=== PATIENT | female | born 1935 | race Caucasian/White ===

== ENCOUNTER 2019-12-15 12:45 | Inpatient (IN) | payer OTHER, SELFPAY ==
[~2019-12-15] VITALS: Ht 162.6 cm; Wt 51.7 kg
--- NOTE | 2019-12-15 12:52 | NUR ---
PT BIB ALS TO ER BED 10
--- NOTE | 2019-12-15 13:00 | NUR ---
4 days fever , denies sob , pain on hip and knees 01/07 .sce , cbs blf. flat soft abdomen. pmhxs copd , hypercholesterolimia , thyroid problem , heart problem. meds .digoxin , synthroid, atrovastatin, diltiazem.
[2019-12-15 13:11] VITALS: BP 125/76
--- NOTE | 2019-12-15 13:14 | NUR ---
dr han at bedside evaluating pt.
--- NOTE | 2019-12-15 13:20 | NUR ---
RT AT BEDSIDE FOR EKG Addendum: 12/15/19 at 1405 by ITZ Amendment fracisco in EDM - 12/15/19 at 1406 by ITZ FOR ABG NOT EKG Addendum: 12/15/19 at 1406 by AILYN FOR ABG NOT EKG
[2019-12-15] MEDS ORDERED: ACETAMINOPHEN EXTRA STRENGTH 500 MG TAB ONE (13:22)
[2019-12-15] MEDS ORDERED: ACETAMINOPHEN 650 MG SUPP RC ONE (13:24)
[2019-12-15] MEDS ORDERED: ACETAMINOPHEN EXTRA STRENGTH 500 MG TAB PO ONE (13:40)
[2019-12-15 13:43] LABS: APPEARANCE,URINE SL CLOUDY (CLEAR); BILIRUBIN,URINE NEGATIVE (NEGATIVE); BLOOD, URINE 2+ (NEGATIVE); COLOR,URINE YELLOW (YELLOW); LEUKOCYTE ESTERASE ,URINE 3+ (NEGATIVE); NITRITE, URINE NEGATIVE (NEGATIVE); UGLUCOSE NEGATIVE (NEGATIVE)
[2019-12-15] MEDS ORDERED: cefTRIAXone 1,000 MG VIAL ONE (13:49)
[2019-12-15 13:55] LABS: RBC,URINE 11-20 (MOD) /HPF (0-5); WBC,URINE 80-100 /HPF (0-5)
--- NOTE | 2019-12-15 14:00 | NUR ---
xray at bedside
--- NOTE | 2019-12-15 14:01 | NUR ---
XRAY AT BESIDE
[2019-12-15 14:11] LABS: ALBUMIN 2.6 g/dL (3.4-5.0); ANION GAP 11.2 (8-16); ASPARTATE AMINOTRANSFERASE 31 U/L (15-37); CARBON DIOXIDE 30.2 mmol/L (21-32); CHLORIDE 104 mmol/L (98-107); CREATININE 0.8 mg/dL (0.6-1.3); GLUCOSE 139 mg/dL (74-106); POTASSIUM 3.4 mmol/L (3.5-5.1); SODIUM SERUM 142 mmol/L (136-145); TOTAL BILIRUBIN 0.8 mg/dL (0.0-1.0); UREA NITROGEN, BLOOD 19 mg/dL (7-18)
[2019-12-15 14:15] LABS: PROTHROMBIN TIME 9.2 secs (10.8-13.4)
--- NOTE | 2019-12-15 14:41 | NUR ---
PT COMFORTABLE IN BED , AWAKE , ALERT, AFIBRILE. NO COMPLAINT AT THIS TIME.
[2019-12-15 15:29] LABS: BASOPHILS % (AUTO) 0.6 % (0.0-2.0); EOSINOPHILS % (AUTO) 0.1 % (0.0-4.0); HEMOGLOBIN 12.5 g/dL (12.0-16.0); LYMPHOCYTES # (AUTO) 0.2 K/uL (2.5-16.5); LYMPHOCYTES % (AUTO) 3.6 % (20.5-51.1); MEAN CORPUSCULAR HEMOGLOBIN 30 pg (27-31); MEAN CORPUSCULAR HGB CONC 33 g/dL (33-37); MONOCYTES # (AUTO) 0.5 K/uL (0.8-1.0); MONOCYTES % (AUTO) 6.8 % (1.7-9.3); NEUTROPHILS % (AUTO) 88.9 % (42.2-75.2); PLATELET COUNT (AUTO) 155 K/uL (140-450); RED BLOOD CELL COUNT(AUTO) 4.17 MIL/uL (4.20-5.40); RED CELL DISTRIBUTION WIDTH 14.6 % (11.6-13.7); WHITE BLOOD COUNT (AUTO) 6.7 K/uL (4.8-10.8)
[2019-12-15] MEDS ORDERED: ACETAMINOPHEN 325 MG TAB PO PRN (15:45)
[2019-12-15] MEDS ORDERED: ONDANSETRON 4 MG/2 ML VIAL IVP PRN (15:45)
[2019-12-15] MEDS ORDERED: HYDROcodone/APAP 7.5/325 MG 1 TAB PO PRN (15:45)
[2019-12-15] MEDS ORDERED: ALBUTEROL HFA MDI 90 MCG/ACTUATION 8 GM INH PRN (16:40)
[2019-12-15 16:43] LABS: FREE T4 (FREE THYROXINE) 1.58 ng/dL (0.76-1.46); PHOSPHORUS 2.9 mg/dL (2.5-4.9); THYROID STIMULATING HORMONE 0.53 uIU/mL (0.34-3.74)
[2019-12-15] MEDS ORDERED: CYCL0.052 OP (17:03)
[2019-12-15] MEDS ORDERED: LEVO0.124 PO (17:03)
[2019-12-15] MEDS ORDERED: DIGO0.122 PO (17:03)
[2019-12-15] MEDS ORDERED: ATOR20TA PO (17:03)
[2019-12-15] MEDS ORDERED: CYAN100T65 PO (17:03)
[2019-12-15] MEDS ORDERED: VITA500L (17:03)
[2019-12-15] MEDS ORDERED: MV-M1CAP8 PO (17:03)
[2019-12-15] MEDS ORDERED: CARER90 PO (17:03)
[2019-12-15] MEDS ORDERED: CALC500C17 PO (17:03)
--- NOTE | 2019-12-15 17:04 | NUR ---
PT TAKEN TO FLOOR BY DENISHA PEPPER
--- NOTE | 2019-12-15 17:10 | NUR ---
Patient will be admitted to care of Dr barber. Admited to [facility]. Will go to room 116 b. Belongings list completed. Report to brenda alonso.
--- NOTE | 2019-12-15 17:10 | NUR ---
RECEIVED PT. FROM ER NURSE, AFSHAN. PT. IS AAOX4 AND IN BED. NO SIGNS OF DISTRESS NOTED. PT. IS ON 3LPM O2 VIA NC WITH O2 STAT OF 99%. OPEN WOUND PRESENT ON THE RIGHT ANKLE, CLEANED AND DRESSING CHANGED. V/S TAKEN, ALL WNL. FALL PRECAUTIONS INITIATED. DROPLET ISOLATION INITIATED. CALL LIGHT WITHIN REACH. WILL CONTINUE TO MONITOR.
[2019-12-15] MEDS ORDERED: AZITHROMYCIN 500 MG in DEXTROSE 5% 250 ML IV SCH (17:50)
--- NOTE | 2019-12-15 18:00 | NUR ---
DR. STOCK BY THE BEDSIDE. PT. ASSESSMENT IS DONE.
[2019-12-15 18:29] VITALS: BP 116/84
--- NOTE | 2019-12-15 19:10 | NUR ---
PT'S FAMILY CALLED WITH REQUEST OF JONES CATHETER, DR. STOCK IS INFORMED AND WILL CONTACT FAMILY.
--- NOTE | 2019-12-15 19:30 | NUR ---
RECEIVED PT AAOX4 , NID - O2 SAT WNL , ON O2 AT 3LPM/NC , IV SITE INTACT AND PATENT . ON TELE MONITOR. SAFETY MEASURES IN PLACE - BED ALARM ON . PLAN OF CARE DISCUSSED AND VERBALIZED UNDERSTANDING - CALL LIGHT WITHIN REACH , W/ WOUND ON RIGHT ANKLE - REMINDS PT THE USE OF CALL LIGHT WHEN SHE NEEDED HELP OF ANYTHING- VERBALIZE UNDERSTANDING . WILL CONT. TO MONITOR.
--- NOTE | 2019-12-15 19:30 | NUR ---
ENDORSED PT. TO ANESTHESIOLOGIST PHYSICIAN NURSE, VIDHYA, FOR CONTINUITY OF CARE.
[2019-12-15 20:00] VITALS: BP 140/80
[2019-12-15] MEDS: DOCUSATE SODIUM 100 MG GELCAP PO SCH (20:53)
--- NOTE | 2019-12-15 22:00 | NUR ---
MADE ROUNDS , NO S/S OF ACUTE DISTRESS NOTED AT THIS TIME . O2 SAT WNL . WILL CONT. TO MONITOR.
[2019-12-15] MEDS ORDERED: AZITHROMYCIN 500 MG INJ VIAL IV ONE (23:13)
[2019-12-16] VITALS: BP 133/70
--- NOTE | 2019-12-16 00:21 | NUR ---
C/O PAIN BURNING SENSATION ON IV SITE - SLOW DOWN THE REGULATION OF ZITHROMAX TIV - ASSESSED IV SITE - INTACT AND PATENT - NO SIGNS OF INFALMMATION OR REDNESS AT THIS TIME .WILL CONT. TO MONITOR . I INFORM THE PT. IF THE PAIN ON THE IV SITE IS BOTHER S A LOT TO HER - I WILL INSERT NEW ONE ON DIFFERENT SITE.- FOR CLOSELY WATCH THE IV SITE.
--- NOTE | 2019-12-16 01:20 | NUR ---
MADE ROUNDS , SHE SAID THE PAIN IN IV SITE IS REDUCED AND BERABLE AT THIS TIME ./ WILL CONT. TO MONITOR. NO INFLAMMATION OR REDNESS NOTED AT THE IV SITE . CALL LIGHT WITHIN IN REACH.
--- NOTE | 2019-12-16 03:30 | NUR ---
RESULT OF BLOOD CULTURE -INFORM DR. TORRES .
[2019-12-16 04:00] VITALS: BP 140/80
--- NOTE | 2019-12-16 06:00 | NUR ---
MADE ROUNDS . RESTING ON BED . NO COMPLAIN MADE AT THIS TIME . IV SITE INTACT AND PATENT - NO REDNESS , NO INFLAMMATION NOTED . WILL CONT. TO MONITOR.
--- NOTE | 2019-12-16 06:40 | NUR ---
PT SAID SHE HAS URGE TO POOP - PUT PT ON BEDPAN - WHEN I PUT A BEDPAN I FEELS SOMETHING HARD LUMPS ON ABD. - NO COMPLAIN OF PAIN AT THIS TIME - WILL INFORM DENISE.
[2019-12-16 06:44] LABS: BASOPHILS % (AUTO) 0.6 % (0.0-2.0); EOSINOPHILS % (AUTO) 0.2 % (0.0-4.0); HEMATOCRIT 36.2 % (36-48); HEMOGLOBIN 12.2 g/dL (12.0-16.0); LYMPHOCYTES # (AUTO) 0.3 K/uL (2.5-16.5); LYMPHOCYTES % (AUTO) 3.9 % (20.5-51.1); MEAN CORPUSCULAR HEMOGLOBIN 30 pg (27-31); MEAN CORPUSCULAR HGB CONC 34 g/dL (33-37); MEAN CORPUSCULAR VOLUME 90.5 fL (80-94); MONOCYTES # (AUTO) 0.6 K/uL (0.8-1.0); MONOCYTES % (AUTO) 8.8 % (1.7-9.3); NEUTROPHILS # (AUTO) 6.4 K/uL (1.8-7.7); NEUTROPHILS % (AUTO) 86.5 % (42.2-75.2); PLATELET COUNT (AUTO) 164 K/uL (140-450); RED CELL DISTRIBUTION WIDTH 14.5 % (11.6-13.7); WHITE BLOOD COUNT (AUTO) 7.3 K/uL (4.8-10.8)
[2019-12-16] MEDS: LEVOTHYROXINE 0.025 MG TAB PO SCH (06:44)
[2019-12-16 06:57] LABS: ANION GAP 10.1 (8-16); CARBON DIOXIDE 28.6 mmol/L (21-32); CHLORIDE 104 mmol/L (98-107); CREATININE 0.7 mg/dL (0.6-1.3); GLUCOSE 110 mg/dL (74-106); POTASSIUM 3.7 mmol/L (3.5-5.1); SODIUM SERUM 139 mmol/L (136-145); UREA NITROGEN, BLOOD 13 mg/dL (7-18)
[2019-12-16 07:03] LABS: MAGNESIUM 1.8 mg/dL (1.8-2.4); PHOSPHORUS 3.2 mg/dL (2.5-4.9)
--- NOTE | 2019-12-16 07:25 | NUR ---
ENDORSED TO AM SHIFT - PT - STABLE - INFORM THE AM SHIFT ABOUT THE ABDL. HARD LUMPS OF THE PT.
--- NOTE | 2019-12-16 07:27 | NUR ---
RECEIVED REPORT FROM MEDIA CONSULTANT OUTSIDE SALES NURSE FOR CONTINUITY OF CARE. PT AWAKE AND RESTING ON BED AT THIS TIME. PT SPEAKS SAMMARINESE AND ABLE TO MAKE NEEDS KNOWN. RESPIRATION EVEN AND UNLABORED ON 2 LPM VIA NC. NO SIGNS OF DISTRESS NOTED. IV ON R WRIST 20G, CLEAN AND INTACT, SL AT THIS TIME. PT IS INCONTINENT AND BEDREST. TELE MONITOR ATTACHED. SAFETY MEASURES IN PLACE. BED IN LOW POSITION, CALL LIGHT WITHIN REACH. BE ALARM ACTIVATED.
[2019-12-16 08:00] VITALS: BP 127/65
[2019-12-16] MEDS: DILTIAZEM 90 MG CAPER PO SCH (08:52)
[2019-12-16] MEDS: VITAMIN E 200 IU CAPLF PO SCH (08:52)
[2019-12-16] MEDS: LACTOBACILLUS RHAMNOSUS GG 1 EACH CAP PO SCH (08:53)
[2019-12-16] MEDS: MULTIVITAMIN 1 TAB PO SCH (08:53)
[2019-12-16] MEDS: CALCIUM CARBONATE 500 MG TAB.CHEW PO SCH (08:53)
[2019-12-16] MEDS: DIGOXIN 0.125 MG TAB PO SCH (08:54)
[2019-12-16] MEDS: DOCUSATE SODIUM 100 MG GELCAP PO SCH ×2 (08:54→20:51)
[2019-12-16] MEDS: ATORVASTATIN 20 MG TAB PO SCH (08:55)
--- NOTE | 2019-12-16 09:20 | NUR ---
CHECKED BP PRIOR TO MED ADMINISTER, BP 120/59 PULSE 138, SPO2 98% WITH 2 LPM VIA NC. ADMINISTERED MEDS PER MD ORDER, MEDS EDUCATION PROVIDED TO PT AND PT VERBALIZED UNDERSTANDING. PT TOLERATED PO MEDS WELL. CHANGED GOWN DUE TO SOILED. PT AWAKE AND SITTING UP ON BED AT THIS TIME. NO SIGNS OF DISTRESS NOTED. TELE MONITOR ATTACHED. SAFETY MEASURES IN PLACE. BED IN LOW POSITION AND CALL LIGHT WITHIN REACH. BED ALARM ACTIVATED. DR RAYO IS AT BEDSIDE AND TALKING TO PATIENT.
--- NOTE | 2019-12-16 09:25 | NUR ---
RECEIVED A CALL FROM PT'S DAUGHTER REX [phone], UPDATED REX WITH PT'S CURRENT CONDITION AND REX WAS AWARE.
--- NOTE | 2019-12-16 09:49 | NUR ---
PATIENT HAS BEEN SCREENED AND CATEGORIZED HIGH NUTRITION RISK. PATIENT WILL BE SEEN WITHIN 1-2 DAYS OF ADMISSION. 12/16/19-12/17/[address]
--- NOTE | 2019-12-16 10:11 | NUR ---
FOOD AND BEVERAGE INTERN NOTE: Basic Screen: Yes High Risk DC Screen [place]: REX SLADE Home Relationship: DAUGHTER Pre-Admission Living Arrangements: Lives Alone Prior ADL Independent Current Home Health Name/Tel: N/A Current DME/02 Name/Tel: N/A Current Hospice Name/Tel: N/A Current Dialysis Name/Tel: N/A Healthcare Decision Maker: Patient Advance Directive No Physician Orders for Life Sustaining Treatment Form No Patient/Family Have Educational Needs No Discipline: Case Mgt/Social Svcs Tentative Discharge Plan/Destination: No Needs Identified Will require assistance post discharge: No Referred to Wireless Telegrapher: No Tentative Discharge Plan Summary: PATIENT IS AN 84-YEAR-OLD FEMALE ADMITTED FOR UTI, FEVER, AND R/O COVID. ROSIE HAS PMHX OF CARDIAC DISORDERS. PATIENT WAS ADMITTED FROM HOME WHERE SHE LIVES ALONE. MARIA VICTORIA CONTACTED PATIENT'S DAUGHTER REX SLADE TO VERIFY DEMOGRAPHICS. PER REX, PATIENT IS INDEPENDENT WITH ALL ADLS AND REQUIRES NO ASSISTANCE WITH SHOPPING, DRIVING, GOING TO PHYSICIAN'S APPOINTMENTS, OR ANY OTHER ADLS. REX STATED THAT PATIENT HAS NO HISTORY OF MENTAL HEALTH OR SUBSTANCE ABUSE. REX REQUESTED PHONE NUMBER TO NURSING STATION REGARDING QUESTIONS OF DISCHARGE PLAN WITH NURSING STAFF. MARIA VICTORIA PROVIDED REX NURSING STATION PHONE NUMBER. TENTATIVE DISCHARGE PLAN IS FOR PATIENT TO RETURN HOME. NO FURTHER NEEDS IDENTIFIED. Signature: CHERY SAVAGE Date: December 16, 2019 Time: 10:10
--- NOTE | 2019-12-16 11:40 | NUR ---
PT AWAKE AND RESTING ON BED. NO SIGNS OF DISTRESS NOTED. TELE MONITOR ATTACHED. SAFETY MEASURES IN PLACE. BED IN LOW POSITION AND CALL LIGHT WITHIN REACH.
[2019-12-16 12:00] VITALS: BP 118/60
--- NOTE | 2019-12-16 13:20 | NUR ---
DC PLANNIN YRS OLD FEMALE PATIENT WAS ADMITTED FROM HOME WITH A DX OF UTI, FEVER, AND R/O COVID . PATIENT HAS A HX OF HEART FAILURE CONSTIPATION, HLD AND MULTIPLE HERNIA REPAIR. CXR SHOWED HYPERINFLATED LUNGS MAY REPRESENT COPD , INFLUENZA A&B NEGATIVE. BLOOD AND URINE CULTURE AND COVID-19 TEST PENDING, ADMINISTERED IV ABX ROCEPHIN AND IV AZITHROMYCIN . PULMONOLOGY CONSULTED. DC PLAN TO GO HOME WHEN STABLE. CM TO FOLLOW. Addendum: 12/18/19 at 1323 by Katerina Rivas CM DC PLANNING: NEGATIVE FOR COVID-19 ,SEEN BY PULMO DR RAYO CONTINUE OXYGEN AND BREATHING TREATMENT AND PT,OT. SEEN BY GIOVANNI LOPEZ CONTINUE IV ABX WITH CEFTRIAXONE, DC PLAN AWAITING FOR URINE CULTURE RESULT TO SEND PT WITH THE RIGHT ABX. CM TO FOLLOW. Addendum: 12/19/19 at 1104 by Renetta Duff CM FAXED PATIENT PACK TO [facility] AND SPOKE WITH SEGUNDO, SHE IS REVIEWING PACKET AND WILL FOLLOW UP. Addendum: 12/19/19 at 1652 by Renetta Duff CM CONTACTED FANTA AT [facility] TO SET UP HOME O2 , FAXED PACKET. PATIENT HAS BEEN ACCEPTED WITH [facility]. Addendum: 12/20/19 at 1211 by Renetta Duff CM SPOKE TO TOREY AT [facility] HOME O2 IS ORDERED AND WILL BE DELIVERED TO PATIENT TODAY. SPOKE TO DR. PERSAUD HE IS WORKING ON DISCHARGE SUMMARY.
[2019-12-16] MEDS: SKINTEGRITY HYDROGEL TP SCH (13:33)
--- NOTE | 2019-12-16 13:38 | NUR ---
PERFORMED WOUND CARE, CLEANSED WITH NS AND PAT DRY. APPLIED HYDROGEL AND SECURED WITH ISLAND DRESSING. PT TOLERATED WELL. UPLOADED PRESSURE WITH PILLOWS. WOUND CARE EDUCATION PROVIDED AND PT VERBALIZED UNDERSTANDING. PT AWAKE AND RESTING ON BED. NO SIGNS OF DISTRESS NOTED. TELE MONITOR ATTACHED. SAFETY MEASURES IN PLACE. BED IN LOW POSITION AND CALL LIGHT WITHIN REACH.
--- NOTE | 2019-12-16 14:10 | NUR ---
ADMINISTERED ANTIBIOTIC PER MD ORDER, MED EDUCATION PROVIDED AND REINFORCEMENT NEEDED DUE TO MENTAL STATUS. PT AWAKE AND RESTING ON BED AT THIS TIME. RESPIRATION EVEN AND UNLABORED ON 2 LPM VIA NC, SPO2 AT 98%. NO SIGNS OF DISTRESS NOTED. TELE MONITOR ATTACHED. SAFETY MEASURES IN PLACE.
--- NOTE | 2019-12-16 15:15 | NUR ---
SUPPORT CLERK PROVIDED HYGIENE CARE TO PT AND PT TOLERATED WELL. NO SIGNS OF DISTRESS NOTED. TELE MONITOR ATTACHED. SAFETY MEASURES IN PLACE.
[2019-12-16 16:00] VITALS: BP 130/59
--- NOTE | 2019-12-16 16:23 | NUR ---
PT IS RESTING ON BED. RESPIRATION EVEN AND UNLABORED. NO SIGNS OF DISTRESS NOTED. TELE MONITOR ATTACHED. SAFETY MEASURES IN PLACE. BED IN LOW POSITION AND CALL LIGHT WITHIN REACH. BED ALARM ACTIVATED.
--- NOTE | 2019-12-16 16:26 | NUR ---
12/16/19 RD INITIAL ASSESSMENT COMPLETED PLEASE REFER TO NUTRITION ASSESSMENT UNDER CARE ACTIVITY FOR ESTIMATED NUTRITIONAL NEEDS. 1. CONTINUE CARDIAC DIET TOLERATED 2. RECOMMEND MADY BID 3. ENCOURAGE PO INTAKE >75% 4. RD TO FOLLOW-UP 3-5 DAYS, MODERATE RISK FRANDY OLSEN, RD
--- NOTE | 2019-12-16 17:37 | NUR ---
PT IS AWAKE AND RESTING ON BED AT THIS TIME. NO SIGNS OF DISTRESS NOTED. TELE MONITOR ATTACHED. SAFETY MEASURES IN PLACE.
--- NOTE | 2019-12-16 19:11 | NUR ---
ENDORSED PT TO FRONT OFFICE DIRECTOR NURSE FOR CONTINUITY OF CARE. PT IS IN STABLE CONDITION. TELE MONITOR ATTACHED. SAFETY MEASURES IN PLACE.
--- NOTE | 2019-12-16 19:12 | NUR ---
RECEIVED REPORT FROM DAY SHIFT NURSE. PT IN BED RESTING. AWAKE AND ALERT. ABLE TO MAKE NEEDS KNOWN. PT IS ON BEDREST. RESPIRATIONS EVEN AND UNLABORED. ON O2 2LPM/NC. SKIN IS DRY. WITH OPEN WOUND ON R ANKLE. DRESSING CLEAN AND INTACT. DENIES ANY PAIN OR DISCOMFORT AT THIS TIME. IV ACCESS ON RFA G20 CLEAN AND INTACT. SALINE LOCKED. PLAN OF CARE DISCUSSED. NO OTHER REQUESTS MADE AT THIS TIME. PT KEPT COMFORTABLE. SAFETY MEASURES IN PLACE. CALL LIGHT WITHIN REACH. WILL CONTINUE TO MONITOR.
[2019-12-16 20:00] VITALS: BP 117/65
--- NOTE | 2019-12-16 20:52 | NUR ---
VS WNL. SCHEDULED MEDS GIVEN ORDERED. DENIES ANY PAIN OR DISCOMFORT AT THIS TIME. NO REQUESTS MADE. SAFETY MEASURES IN PLACE. CALL LIGHT WITHIN REACH. WILL CONTINUE TO MONITOR.
[2019-12-16] MEDS ORDERED: AZITHROMYCIN 250 MG in DEXTROSE 5% 250 ML IV SCH (21:00)
--- NOTE | 2019-12-16 22:53 | NUR ---
PT WATCHING TV. HOB ELEVATED. O2 IN PLACE. RESPIRATIONS EVEN AND UNLABORED. PT NOT IN DISTRESS. NO REQUESTS AT THIS TIME. SAFETY MEASURES IN PLACE. CALL LIGHT WITHIN REACH. WILL CONTINUE TO MONITOR.
[2019-12-17] VITALS: BP 107/60
--- NOTE | 2019-12-17 | NUR ---
VITAL SIGNS STABLE. PT RESTING WITH HOB ELEVATED. O2 IN PLACE. RESPIRATIONS EVEN AND UNLABORED. NOT IN DISTRESS. SAFETY MEASURES IN PLACE. WILL CONTINUE TO MONITOR.
--- NOTE | 2019-12-17 02:00 | NUR ---
PT ASLEEP. O2 IN PLACE. NO S/SX OF DISTRESS NOTED. SAFETY MEASURES IN PLACE. WILL CONTINUE TO MONITOR.
[2019-12-17 04:00] VITALS: BP 135/55
--- NOTE | 2019-12-17 04:10 | NUR ---
VITAL SIGNS WITHIN NORMAL LIMITS. PT DENIES ANY PAIN OR DISCOMFORT AT THIS TIME. O2 IN PLACE. RESPIRATIONS EVEN AND UNLABORED. CALL LIGHT WITHIN REACH. WILL CONTINUE TO MONITOR.
[2019-12-17] MEDS: LEVOTHYROXINE 0.025 MG TAB PO SCH (05:36)
--- NOTE | 2019-12-17 05:37 | NUR ---
SCHEDULED MEDS GIVEN ORDERED. PT NOT IN DISTRESS. WILL CONTINUE TO MONITOR.
[2019-12-17 06:56] LABS: BASOPHILS % (AUTO) 0.3 % (0.0-2.0); EOSINOPHILS # (AUTO) 0.1 K/uL (0-0.4); EOSINOPHILS % (AUTO) 1.1 % (0.0-4.0); HEMATOCRIT 38.5 % (36-48); HEMOGLOBIN 12.7 g/dL (12.0-16.0); LYMPHOCYTES # (AUTO) 0.6 K/uL (2.5-16.5); LYMPHOCYTES % (AUTO) 9.5 % (20.5-51.1); MEAN CORPUSCULAR HEMOGLOBIN 30 pg (27-31); MEAN CORPUSCULAR HGB CONC 33 g/dL (33-37); MEAN CORPUSCULAR VOLUME 91.2 fL (80-94); MONOCYTES # (AUTO) 0.8 K/uL (0.8-1.0); NEUTROPHILS # (AUTO) 5.1 K/uL (1.8-7.7); NEUTROPHILS % (AUTO) 77.1 % (42.2-75.2); PLATELET COUNT (AUTO) 175 K/uL (140-450); RED BLOOD CELL COUNT(AUTO) 4.22 MIL/uL (4.20-5.40); RED CELL DISTRIBUTION WIDTH 14.8 % (11.6-13.7); WHITE BLOOD COUNT (AUTO) 6.5 K/uL (4.8-10.8)
--- NOTE | 2019-12-17 07:14 | NUR ---
GAVE REPORT TO DAY SHIFT NURSE FOR CONTINUITY OF CARE. PT IS IN STABLE CONDITION.
--- NOTE | 2019-12-17 07:31 | NUR ---
RECEIVED REPORT FROM OPERATOR AUTOMATED PROCESS RN FOR CONTINUITY OF CARE. PT IS AAOX3. ABLE TO MAKE NEEDS KNOWN. PT IS ON BEDREST. RESPIRATIONS EVEN AND UNLABORED. ON O2 2LPM/NC. SKIN IS DRY WITH OPEN WOUND ON R ANKLE. DRESSING CLEAN AND INTACT. DENIES ANY PAIN OR DISCOMFORT AT THIS TIME. IV ACCESS ON RFA G20 CLEAN AND INTACT. SALINE LOCKED. PLAN OF CARE DISCUSSED WITH PT AND PT VERBALIZED UNDERSTANDING. NO OTHER REQUESTS MADE AT THIS TIME. PT KEPT COMFORTABLE. SAFETY MEASURES IN PLACE. CALL LIGHT WITHIN REACH, BED IN LOW POSITION. WILL MONITOR PT FREQUENTLY THROUGHOUT THE SHIFT.
[2019-12-17 07:33] LABS: ALBUMIN 2.2 g/dL (3.4-5.0); ANION GAP 9.6 (8-16); ASPARTATE AMINOTRANSFERASE 24 U/L (15-37); CARBON DIOXIDE 34.8 mmol/L (21-32); CHLORIDE 105 mmol/L (98-107); CREATININE 0.7 mg/dL (0.6-1.3); GLUCOSE 119 mg/dL (74-106); LACTATE DEHYDROGENASE 155 U/L (81-234); MAGNESIUM 1.8 mg/dL (1.8-2.4); POTASSIUM 4.4 mmol/L (3.5-5.1); SODIUM SERUM 145 mmol/L (136-145); TOTAL BILIRUBIN 0.4 mg/dL (0.0-1.0); UREA NITROGEN, BLOOD 13 mg/dL (7-18)
[2019-12-17 08:00] VITALS: BP 132/67
[2019-12-17 09:15] LABS: LACTATE DEHYDROGENASE 151 IU/L (119-226)
--- NOTE | 2019-12-17 09:28 | NUR ---
ADMINISTERED MORNING MEDS TO PT. PT TOLERATED WELL. ALL OTHER NEEDS MET. WILL CONTINUE TO ROUND FREQUENTLY ON PT.
[2019-12-17] MEDS: LACTOBACILLUS RHAMNOSUS GG 1 EACH CAP PO SCH (09:33)
[2019-12-17] MEDS: MULTIVITAMIN 1 TAB PO SCH (09:35)
[2019-12-17] MEDS: DIGOXIN 0.125 MG TAB PO SCH (09:35)
[2019-12-17] MEDS: DOCUSATE SODIUM 100 MG GELCAP PO SCH ×2 (09:35→21:11)
[2019-12-17] MEDS: CALCIUM CARBONATE 500 MG TAB.CHEW PO SCH (09:35)
[2019-12-17] MEDS: DILTIAZEM 90 MG CAPER PO SCH (09:36)
[2019-12-17] MEDS: VITAMIN E 200 IU CAPLF PO SCH (09:36)
[2019-12-17] MEDS: ATORVASTATIN 20 MG TAB PO SCH (09:36)
--- NOTE | 2019-12-17 11:33 | NUR ---
PT SLEEPING. NO SIGNS OF PAIN OR DISTRESS AT THIS TIME. WILL CONTINUE TO ROUND FREQUENTLY ON PT.
[2019-12-17 12:00] VITALS: BP 134/70
--- NOTE | 2019-12-17 13:21 | NUR ---
PT ON PHONE TALKING TO DAUGHTER. ALL NEEDS MET. WILL CONTINUE TO ROUND FREQUENTLY ON PT. BED IN LOW POSITION, CALL LIGHT WITHIN REACH.
[2019-12-17] MEDS: SKINTEGRITY HYDROGEL TP SCH (13:29)
--- NOTE | 2019-12-17 15:47 | NUR ---
PT ASLEEP. NO SIGNS OF PAIN OR DISTRESS NOTED. WILL CONTINUE TO ROUND FREQUENTLY ON PT.
[2019-12-17 16:00] VITALS: BP 109/52
--- NOTE | 2019-12-17 19:26 | NUR ---
RECEIVED BEDSIDE SHIFT REPORT FROM [facility] NURSE SILVER FOR CONTINUITY OF CARE. PATIENT AWAKE AND ALERT NO SIGNS OF DISTRESS NOTED. RESPIRATIONS EVEN AND UNLABORED ON 2L O2 VIA NC. SPO2 AT 95%. IV PATENT AND INFUSING WITH NS TKO. SAFETY MEASURES IN PLACE AND CALL LIGHT WITHIN REACH.
--- NOTE | 2019-12-17 19:40 | NUR ---
RECEIVED PATIENT ON 2L NASAL CANNULA, PULSE OX SAT 97%. PT DESATURATED TO 87% ON ROOM AIR. PATIENT PLACED BACK ON OXYGEN AT 1LPM, PULSE OX SAT 94%. PT DENIES SOB; PRN TX NOT INDICATED AT THIS TIME. PT MADE AWARE OF ORDERED MEDICATION FREQUENCY AND INSTRUCTED TO CALL NEEDED FOR SOB. NO ACUTE RESPIRATORY DISTRESS NOTED AT THIS TIME. WILL CONTINUE TO MONITOR.
--- NOTE | 2019-12-17 19:42 | NUR ---
ENDORSED PT TO ASSOCIATE PRINCIPAL FOR CONTINUITY OF CARE. PT IN STABLE CONDITION.
[2019-12-17 20:00] VITALS: BP 117/66
--- NOTE | 2019-12-17 21:11 | NUR ---
ADMINISTERED 2100 MEDICATIONS TO PATIENT. PATIENT TOLERATED WELL. NO SIGNS OF DISTRESS NOTED. RESPIRATIONS EVEN AND UNLABORED ON 2L O2 VIA NC. SAFETY MEASURES IN PLACE. TELE MONITOR ATTACHED AND CALL LIGHT WITHIN REACH
--- NOTE | 2019-12-17 23:00 | NUR ---
PT COMPLAINED OF PAIN AT IV SITE. SITE CHANGED TO RIGHT FOREARM 240 GAUGE. PATIENT TOLERATED WELL NO SIGNS OF DISTRESS NOTED
[2019-12-18] VITALS: BP 133/69
--- NOTE | 2019-12-18 01:30 | NUR ---
ROUNDING, PATIENT RESTING NO SIGNS OF DISTRESS NOTED. RESPIRATIONS EVEN AND UNLABORED. TELE MONITOR ATTACHED AND CALL LIGHT WITHIN REACH
--- NOTE | 2019-12-18 03:52 | NUR ---
ROUNDING, PATIENT RESTING NO SIGNS OF DISTRESS NOTED. SPO2 94% ON 2L O2 VIA NC. TELE MONITOR ATTACHED AND CALL LIGHT WITHIN REACH
[2019-12-18 04:00] VITALS: BP 139/71
[2019-12-18] MEDS: LEVOTHYROXINE 0.025 MG TAB PO SCH (06:30)
--- NOTE | 2019-12-18 06:30 | NUR ---
ADMINISTED 0630 MEDICATION TO PATIENT. PATIENT TOLERATED WELL NO SIGNS OF DISTRESS NOTED. RESPIRATIONS EVEN AND UNLABORED ON 2L O2, SPO2 95%. TELE MONITOR ATTACHED AND CALL LIGHT WITHIN REACH
[2019-12-18 06:32] LABS: ANION GAP 6.1 (8-16); CARBON DIOXIDE 35.6 mmol/L (21-32); CHLORIDE 105 mmol/L (98-107); CREATININE 0.6 mg/dL (0.6-1.3); GLUCOSE 114 mg/dL (74-106); POTASSIUM 3.7 mmol/L (3.5-5.1); SODIUM SERUM 143 mmol/L (136-145); UREA NITROGEN, BLOOD 11 mg/dL (7-18)
[2019-12-18 06:36] LABS: MAGNESIUM 1.7 mg/dL (1.8-2.4)
[2019-12-18 06:50] LABS: MEAN CORPUSCULAR HGB CONC 33 g/dL (33-37); RED CELL DISTRIBUTION WIDTH 14.2 % (11.6-13.7); WHITE BLOOD COUNT (AUTO) 5.3 K/uL (4.8-10.8)
--- NOTE | 2019-12-18 07:05 | NUR ---
ENDORSED PATIENT TO DAYSHIFT NURSE AT BEDSIDE FOR CONTINUITY OF CARE. PATIENT AWAKE AND ALERT IN STABLE CONDITION.
--- NOTE | 2019-12-18 07:05 | NUR ---
RECEIVED REPORT FROM COATER HELPER NURSE FLAVIO-SHANTELLE. PT RESTING IN BED, AOX4, ON 2L/NC WITH IV SITE RIGHT FA #24G RUNNING TKO. INCONTINENT OF BOWEL AND BLADDER. RIGHT ANKLE OPEN WOUND COVERED IN DRESSING WITH MINIMAL DRAINAGE. BEDBOUND- USES CANE AT BASELINE BUT CURRENTLY UNSTABLE. DISCUSSED PLAN OF CARE AND VERBALIZED UNDERSTANDING. NO S/S OF RESPIRATORY DISTRESS OR DISCOMFORT NOTED AT THIS TIME. WILL CONTINUE TO MONITOR.
[2019-12-18 07:26] LABS: HEMATOCRIT 35.8 % (36-48); HEMOGLOBIN 11.8 g/dL (12.0-16.0); MEAN CORPUSCULAR HEMOGLOBIN 30 pg (27-31); MEAN CORPUSCULAR VOLUME 90.3 fL (80-94); PLATELET COUNT (AUTO) 187 K/uL (140-450); RED BLOOD CELL COUNT(AUTO) 3.97 MIL/uL (4.20-5.40)
[2019-12-18 08:00] VITALS: BP 125/92
[2019-12-18] MEDS ORDERED: MAGNESIUM OXIDE 400 MG TAB PO SCH (08:30)
[2019-12-18] MEDS: DILTIAZEM 90 MG CAPER PO SCH (09:05)
[2019-12-18] MEDS ORDERED: ALBUTEROL SULFATE/IPRATROPIU 3 ML SOL IH PRN (09:05)
[2019-12-18] MEDS: LACTOBACILLUS RHAMNOSUS GG 1 EACH CAP PO SCH (09:06)
[2019-12-18] MEDS: VITAMIN E 200 IU CAPLF PO SCH (09:06)
[2019-12-18] MEDS: ATORVASTATIN 20 MG TAB PO SCH (09:07)
[2019-12-18] MEDS: DIGOXIN 0.125 MG TAB PO SCH (09:07)
[2019-12-18] MEDS: CALCIUM CARBONATE 500 MG TAB.CHEW PO SCH (09:08)
[2019-12-18] MEDS: DOCUSATE SODIUM 100 MG GELCAP PO SCH ×2 (09:08→20:58)
[2019-12-18] MEDS: MULTIVITAMIN 1 TAB PO SCH (09:08)
--- NOTE | 2019-12-18 09:08 | NUR ---
SCHEDULED MEDICATIONS GIVEN AND TOLERATED WELL. NO S/S OF RESPIRATORY DISTRESS OR DISCOMFORT NOTED AT THIS TIME. WILL CONTINUE TO MONITOR.
[2019-12-18 10:30] LABS: EOSINOPHILS % (MANUAL) 2 % (0-4); LYMPHOCYTES % (MANUAL) 10 % (20-46); MONOCYTES % (MANUAL) 10 % (5-12)
--- NOTE | 2019-12-18 10:47 | NUR ---
PT AMBULATED DOWN THE LIN WITH PT. PT C/O HIP AND KNEE PAIN. MEDICATED WITH NORCO AND TOLERATED WELL. WILL CONTINUE TO MONITOR.
[2019-12-18] MEDS: SKINTEGRITY HYDROGEL TP SCH (10:56)
--- NOTE | 2019-12-18 10:56 | NUR ---
WOUND CARE EVALUATION NOTE: REASON FOR EVALUATION: RIGHT LOWER LEG WOUND CLARIFICATION: RIGHT ANKLE NO PRESSURE ULCER, SKIN INTACT SKIN ASSESSMENT DONE WITH THIS 84 Y/O FEMALE AAX4, S/P FALL. PER PT. RIGHT LOWER LEG WOUND HAS BEEN THERE FOR 4 YEARS, NEVER HEALED. SKIN IS WARM AND DRY, THIN FRAGILE SKIN EASILY TO TORN. BLE NO HAIR GROWTH, NO EDEMA TO BILATERAL LOWER LEGS. BILATERAL DORSAL PEDAL PULSES PRESENT AND NORMAL. PT. IS INCONTINENT TO BOWEL AND BLADDER. PLAN OF CARE DISCUSSED WITH PRIMARY RN AND PT. INFORM PT. MAY NEED TO FOLLOW UP WITH OUTPATIENT DERMATOLOGY. PT. VERBALIZING UNDERSTANDING INTEGUMENTARY: -SKIN ALTERATION, (SKIN GROWTH LIKED TISSUE) 3.5X3CM, 0.5 CM TALL, WOUND BED IS PINK, SMALL AMOUNT SEROSANGUINEOUS DRAINAGE, NO ODOR, WOUND EDGE FLAT AND JORGE WOUND SKIN DRY AND INTACT, NO PAIN -BILATERAL HEELS THIN CALLUS RECOMMENDATIONS: -APPLY SKIN MOISTURIZER TO UPPER AND LOWER E BID, RJ, PLEASE LIMIT TAPE TO SKIN -CLEANSE RIGHT LOWER LEG WITH NS AND GAUZE, PAT DRY, APPLY HYDROGEL AND COVER WITH COMPOSITE DRESSING Q DAY AND PRN WITH SOILING. -OFFLOAD BILATERAL HEELS BY PLACING PILLOWS UNDER CALVES UNLESS OTHERWISE CONTRAINDICATED -PRESSURE REDISTRIBUTION SURFACE THERAPY -TURN AND REPOSITION Q2H, OFFLOAD SACRALCOCCYX BY TURNING RIGHT AND LEFT -CONTINUE TO FOLLOW RD RECOMMENDATIONS -MAY FOLLOW UP DERMATOLOGY OUTPATIENT ALL ABOVE RECOMMENDATIONS DISCUSSED WITH PRIMARY RN PLEASE CONTACT WOUND CARE NURSE FOR ANY QUESTION AND CHANGE OF WOUND CONDITION.
--- NOTE | 2019-12-18 10:57 | NUR ---
RIGHT ANKLE WOUND CARE GIVEN BY WOUND CARE NURSE BROOKE. INFORMED DR. PERSAUD REGARDING POSSIBLE GROWTH CAUSING OPEN WOUND AND HER RECOMMENDATIONS ON OUTPATIENT PEER EDUCATOR. Addendum: 12/18/19 at 1337 by Anita Duggan RN WOUND CARE NURSE STATED WOUND IS LOCATED IN RIGHT LOWER LEG
[2019-12-18 12:00] VITALS: BP 129/69
--- NOTE | 2019-12-18 12:00 | NUR ---
PT RESTING IN BED, SITTING IN BED EATING LUNCH. NO S/S OF RESPIRATORY DISTRESS OR DISCOMFORT NOTED AT THIS TIME. WILL CONTINUE TO MONITOR.
--- NOTE | 2019-12-18 12:31 | NUR ---
INFORMED DR. PERSAUD REGARDING URINE CULTURE RESULTS OF E.COLI.
[2019-12-18] MEDS: ALBUTEROL SULFATE/IPRATROPIU 3 ML SOL IH SCH ×2 (13:00→19:00)
--- NOTE | 2019-12-18 14:50 | NUR ---
SCHEDULED MEDICATION ROCEPHIN GIVEN AND TOLERATED WELL. NO S/S OF RESPIRATORY DISTRESS OR DISCOMFORT NOTED AT THIS TIME. WILL CONTINUE TO MONITOR.
[2019-12-18 16:00] VITALS: BP 90/61
[2019-12-18 17:35] LABS: ANION GAP 4.2 (8-16); CARBON DIOXIDE 38.7 mmol/L (21-32); CHLORIDE 107 mmol/L (98-107); CREATININE 0.9 mg/dL (0.6-1.3); GLUCOSE 113 mg/dL (74-106); POTASSIUM 3.9 mmol/L (3.5-5.1); SODIUM SERUM 146 mmol/L (136-145); UREA NITROGEN, BLOOD 10 mg/dL (7-18)
--- NOTE | 2019-12-18 18:31 | NUR ---
PT RESTING IN BED SLEEPING. NO S/S OF RESPIRATORY DISTRESS OR DISCOMFORT NOTED AT THIS TIME. WILL CONTINUE TO MONITOR.
--- NOTE | 2019-12-18 19:30 | NUR ---
RECEIVED BEDSIDE REPORT FROM DAY RN. PT IS SLEEPING COMFORTABLY IN BED WITH EYES CLOSED. CHEST RISE AND FALL NOTED. SAT WELL 93% ON 2L O2 VIA NC. C/C FEVER AND SOB. DX UTI,FEVER AND R/O COVID. COVID-19 NEG PT ON STANDARD ISOLATION. SKIN IS WARM AND DRY. PT WITH OPEN WOUND ON R LOWER LEG DRESSING CHANGED TODAY IS C/D/I. PT ON CARDIAC DIET. IS CONTROLLED A-FIB ON MONITOR. PT IS BEDREST. INCONTINENT ABLE TO MAKE NEEDS KNOWN. IV ON R FA 22G TKO. L EYE BLINDNESS. SAFETY MEASURES ARE IN PLACE. CALL LIGHT IS WITHIN REACH. WILL CONTINUE TO MONITOR.
[2019-12-18 20:00] VITALS: BP 99/54
--- NOTE | 2019-12-18 20:58 | NUR ---
VSS. YEMI MEDICATIONS GIVEN PT TOLERATED WELL. ALL SAFETY MEASURES ARE IN PLACE. PT WAS CLEANED AND REPOSITION FOR COMFORT. WILL CONTINUE TO MONITOR.
--- NOTE | 2019-12-18 22:00 | NUR ---
PATIENT IS RESTING COMFORTABLY IN BED WITH EYES CLOSED. CHEST RISE AND FALL NOTED. SAT WELL 98% ON 2L O2. SAFETY MEASURES ARE IN PLACE. WILL CONTINUE TO MONITOR.
[2019-12-19] VITALS: BP 116/68
--- NOTE | 2019-12-19 | NUR ---
VITAL SIGNS ARE WITHIN NORMAL LIMITS. ALL SAFETY MEASURES ARE IN PLACE. WILL CONTINUE TO MONITOR.
--- NOTE | 2019-12-19 02:00 | NUR ---
PT IS SLEEPING COMFORTABLY IN BED WITH EYES CLOSED. CHEST RISE AND FALL NOTED.
[2019-12-19 04:00] VITALS: BP 121/61
--- NOTE | 2019-12-19 04:00 | NUR ---
VITAL SIGNS ARE WITHIN NORMAL LIMITS. ALL SAFETY MEASURES ARE IN PLACE.
[2019-12-19] MEDS: LEVOTHYROXINE 0.025 MG TAB PO SCH (05:48)
--- NOTE | 2019-12-19 05:50 | NUR ---
PATIENT IS SAT WELL 91-93% ON RA NO S/S OF DISTRESS. ADMINISTERED YEMI MEDICATIONS. PT TOLERATED WELL. WILL CONTINUE TO MONITOR.
[2019-12-19 06:42] LABS: BASOPHILS % (AUTO) 0.9 % (0.0-2.0); EOSINOPHILS # (AUTO) 0.1 K/uL (0-0.4); EOSINOPHILS % (AUTO) 1.4 % (0.0-4.0); HEMATOCRIT 37.2 % (36-48); HEMOGLOBIN 12.4 g/dL (12.0-16.0); LYMPHOCYTES # (AUTO) 0.7 K/uL (2.5-16.5); LYMPHOCYTES % (AUTO) 13.3 % (20.5-51.1); MEAN CORPUSCULAR HEMOGLOBIN 30 pg (27-31); MEAN CORPUSCULAR HGB CONC 33 g/dL (33-37); MEAN CORPUSCULAR VOLUME 90.5 fL (80-94); MONOCYTES # (AUTO) 0.5 K/uL (0.8-1.0); MONOCYTES % (AUTO) 9.8 % (1.7-9.3); NEUTROPHILS # (AUTO) 3.7 K/uL (1.8-7.7); NEUTROPHILS % (AUTO) 74.6 % (42.2-75.2); PLATELET COUNT (AUTO) 212 K/uL (140-450); RED BLOOD CELL COUNT(AUTO) 4.11 MIL/uL (4.20-5.40); RED CELL DISTRIBUTION WIDTH 14.3 % (11.6-13.7)
[2019-12-19 06:55] LABS: MAGNESIUM 1.9 mg/dL (1.8-2.4); PHOSPHORUS 3.9 mg/dL (2.5-4.9)
[2019-12-19 07:09] LABS: ANION GAP 8.9 (8-16); CHLORIDE 105 mmol/L (98-107); CREATININE 0.6 mg/dL (0.6-1.3); GLUCOSE 114 mg/dL (74-106); POTASSIUM 3.9 mmol/L (3.5-5.1); SODIUM SERUM 145 mmol/L (136-145); UREA NITROGEN, BLOOD 19 mg/dL (7-18)
[2019-12-19] MEDS: ALBUTEROL SULFATE/IPRATROPIU 3 ML SOL IH SCH ×3 (07:14→19:00)
--- NOTE | 2019-12-19 07:27 | NUR ---
GAVE BEDSIDE REPORT TO DAY RN. PT ENDORSED IN STABLE CONDITION.
--- NOTE | 2019-12-19 07:28 | NUR ---
RECEIVED REPORT FROM ELECTRIC SYSTEM OPERATOR NURSE. PT IS AOX4, NO C/O PAIN, NO SOB, RESPIRATIONS ARE EVEN AND UNLABORED.ON ROOM AIR. TELE MONITOR ATTACHED. WITH RIGHT LEG OPEN WOUND, DRESSING INTACT. WITH IV SITE ON RIGHT HAND 24G, TKO. PLAN OF CARE DISCUSSED. PT VERBALIZED UNDERSTANDING. SAFETY PRECAUTIONS IN PLACE. WILL CONTINUE TO MONITOR
[2019-12-19 08:00] VITALS: BP 110/65
[2019-12-19] MEDS ORDERED: LORazepam 2 MG/ML VIAL IM/IVP PRN (08:15)
[2019-12-19] MEDS: LACTOBACILLUS RHAMNOSUS GG 1 EACH CAP PO SCH (08:25)
[2019-12-19] MEDS: DOCUSATE SODIUM 100 MG GELCAP PO SCH ×2 (08:25→20:56)
[2019-12-19] MEDS: DILTIAZEM 90 MG CAPER PO SCH (08:25)
[2019-12-19] MEDS: DIGOXIN 0.125 MG TAB PO SCH (08:25)
[2019-12-19] MEDS: MULTIVITAMIN 1 TAB PO SCH (08:25)
[2019-12-19] MEDS: CALCIUM CARBONATE 500 MG TAB.CHEW PO SCH (08:25)
[2019-12-19] MEDS: ATORVASTATIN 20 MG TAB PO SCH (08:25)
[2019-12-19] MEDS: VITAMIN E 200 IU CAPLF PO SCH (08:25)
--- NOTE | 2019-12-19 08:30 | NUR ---
DUE MORNING MEDS GIVEN. TOLERATED WELL. CONSENT OBTAINED FOR CT ANGIO
--- NOTE | 2019-12-19 09:00 | NUR ---
WITH C/O ANXIETY. ATIVAN IVPB GIVEN ORDERED
--- NOTE | 2019-12-19 12:00 | NUR ---
IV 20G INSERTED ON RIGHT FOREARM FOR CT ANGIO CONTRAST
--- NOTE | 2019-12-19 12:30 | NUR ---
SEEN BY FORMING MILL OPERATOR. SAID THAT IV NEEDS TO BE LARGER DUE TO PT'S FRAGILE VEINS. CALLED ER TO HELP WITH IV INSERTION ON AC OR HIGHER.
[2019-12-19] MEDS: SKINTEGRITY HYDROGEL TP SCH (12:55)
[2019-12-19] MEDS ORDERED: LEVO750T2 PO (14:10)
--- NOTE | 2019-12-19 14:30 | NUR ---
IV 18 INSERTED ON RAC
--- NOTE | 2019-12-19 14:43 | NUR ---
TOLERATED INCENTIVE SPIROMETRY THERAPY WELL WITHOUT ADVERSE REACTIONS NOTED ENCOURAGED PATIENT WITH ACKNOWLEDGEMENT TO USE INCENTIVE SPIROMETRY EVERY 1-2 HOURS WHILE AWAKE
--- NOTE | 2019-12-19 15:15 | NUR ---
OFF UNIT FOR CT ANGIO
--- NOTE | 2019-12-19 15:45 | NUR ---
BACT TO UNIT FROM RADIOLOGY
[2019-12-19] MEDS ORDERED: LACT10CA1 PO (15:51)
[2019-12-19 16:00] VITALS: BP 115/61
[2019-12-19] MEDS ORDERED: CLINICAL MONITORING MC PRN (17:00)
--- NOTE | 2019-12-19 18:00 | NUR ---
LOVENOX GIVEN ORDERED
[2019-12-19] MEDS: ENOXAPARIN 60 MG/0.6 ML SYR SUBQ SCH (18:02)
--- NOTE | 2019-12-19 18:45 | NUR ---
PT ASLEEP IN BED. IN STABLE CONDITION. WILL ENDORSE TO NEXT SHIFT
--- NOTE | 2019-12-19 19:12 | NUR ---
RECEIVED REPORT FROM DAY SHIFT NURSE. PT IN BED AWAKE, ALERT, AND ORIENTED. DENIES ANY PAIN OR DISCOMFORT AT THIS TIME. RESPIRATIONS EVEN AND UNLABORED. ON O2 2LPM VIA NC. WITH IV ACCES ON R AC G20 AND L FA G 20 CLEAN AND INTACT. SALINE LOCKED. WITH WOUND ON R ANKLE. DRESSING CLEAN. TELE MONITORING IN PLACE. PLAN OF CARE DISCUSSED. PT VERBALIZED UNDERSTANDING. SAFETY MEASURES IN PLACE. CALL LIGHT WITHIN REACH. WILL CONTINUE TO MONITOR.
--- NOTE | 2019-12-19 20:56 | NUR ---
VITAL SIGNS STABLE. SCHEDULED MEDS GIVEN. RESPIRATIONS EVEN AND UNLABORED. O2 IN PLACE. ASSISTED PT IN REPOSITIONING IN BED. PT KEPT COMFORTABLE. SAFETY MEASURES IN PLACE. CALL LIGHT WITHIN REACH. WILL CONTINUE TO MONITOR.
--- NOTE | 2019-12-19 22:38 | NUR ---
PT IN BED WATCHING TV WITH HOB ELEVATED. O2 IN PLACE. NO S/SX OF DISTRESS NOTED. RESPIRATIONS EVEN AND UNLABORED. DENIES ANY PAIN OR DISCOMFORT AT THIS TIME. PT KEPT COMFORTABLE. SAFETY MEASURES IN PLACE. CALL LIGHT WITHIN REACH. WILL CONTINUE TO MONITOR.
[2019-12-20] VITALS: BP 102/50
--- NOTE | 2019-12-20 00:15 | NUR ---
VITAL SIGNS TAKEN. PT IN STABLE CONDITION. O2 IN PLACE. RESPIRATIONS EVEN AND UNLABORED. DENIES ANY PAIN OR DISCOMFORT AT THIS TIME. SAFETY MEASURES IN PLACE. CALL LIGHT WITHIN REACH. WILL CONTINUE TO MONITOR.
--- NOTE | 2019-12-20 02:10 | NUR ---
PT ASLEEP. NO S/SX OF DISTRESS NOTED. O2 IN PLACE. PT KEPT COMFORTABLE. SAFETY MEASURES OBSERVED AT ALL TIMES. CALL LIGHT WITHIN REACH. WILL CONTINUE TO MONITOR.
--- NOTE | 2019-12-20 04:10 | NUR ---
WOUND DRESSING CHANGED. MINIMAL SEROSANGUINEOUS DRAINAGE NOTED. NO S/SX OF INFECTION NOTED. NO COMPLAINS AT THIS TIME. SAFETY MEASURES IN PLACE. WILL CONTINUE TO MONITOR.
[2019-12-20] MEDS: LEVOTHYROXINE 0.025 MG TAB PO SCH (05:53)
[2019-12-20] MEDS: ENOXAPARIN 60 MG/0.6 ML SYR SUBQ SCH (05:55)
--- NOTE | 2019-12-20 05:59 | NUR ---
SCHEDULED MEDS GIVEN ORDERED. PT NOT IN DISTRESS. O2 IN PLACE. WILL CONTINUE TO MONITOR.
[2019-12-20 06:26] LABS: LD1 FRACTION 27 % (17-32); LD2 FRACTION 28 % (25-40); LD3 FRACTION 18 % (17-27); LD4 FRACTION 8 % (5-13); LD5 FRACTION 19 % (4-20)
--- NOTE | 2019-12-20 07:10 | NUR ---
ENDORSED TO DAY SHIFT NURSE FOR CONTINUITY OF CARE. PT IN STABLE CONDITION.
--- NOTE | 2019-12-20 07:15 | NUR ---
RECEIVED PATIENT FROM NIGHT NURSE. PATIENT IS AWAKE AND ALERT. PATIENT IS ON 2L NC, NO NOTED DISTRESS. PATIENT DENIES OF PAIN OR DISCOMFORT. MODIFIED CODE ACLS AND BIPAP. CALL LIGHT WITHIN REACH. WILL CONTINUE WITH CARE
[2019-12-20 08:00] VITALS: BP 102/55
[2019-12-20] MEDS: ALBUTEROL SULFATE/IPRATROPIU 3 ML SOL IH SCH ×2 (08:43→14:39)
[2019-12-20] MEDS: DILTIAZEM 90 MG CAPER PO SCH (09:00)
[2019-12-20] MEDS ORDERED: APIXABAN 2.5 MG TAB PO SCH (09:20)
[2019-12-20] MEDS ORDERED: APIX5TAB PO (09:24)
[2019-12-20] MEDS: ATORVASTATIN 20 MG TAB PO SCH (09:38)
[2019-12-20] MEDS: MULTIVITAMIN 1 TAB PO SCH (09:38)
[2019-12-20] MEDS: LACTOBACILLUS RHAMNOSUS GG 1 EACH CAP PO SCH (09:38)
[2019-12-20] MEDS: DIGOXIN 0.125 MG TAB PO SCH (09:39)
[2019-12-20] MEDS: DOCUSATE SODIUM 100 MG GELCAP PO SCH (09:39)
[2019-12-20] MEDS: VITAMIN E 200 IU CAPLF PO SCH (09:39)
[2019-12-20] MEDS: CALCIUM CARBONATE 500 MG TAB.CHEW PO SCH (09:39)
--- NOTE | 2019-12-20 09:40 | NUR ---
MORNING ROUTINE MEDICATIONS GIVEN. DR PERSAUD WAS MADE AWAY OF DIGOXIN LEVEL NOT DRAWN AND WAS OK TO GIVE DIGOXIN. MANUAL HR 74. CARDIZEM WAS NOT GIVEN D/T BP 102/55. PATIENT TOLERATED MEDICATIONS WELL.
[2019-12-20] MEDS ORDERED: LEVO750T2 PO (12:48)
--- NOTE | 2019-12-20 13:00 | NUR ---
ECHOCARDIOGRAM WAS BEING DONE TO PT NOW.
[2019-12-20] MEDS: SKINTEGRITY HYDROGEL TP SCH (13:53)
[2019-12-20] MEDS ORDERED: DIGOXIN 0.125 MG TAB PO SCH (14:00)
--- NOTE | 2019-12-20 15:35 | NUR ---
DIGOXIN WAS GIVEN. LEVEL WAS CHECKED. DR PERSAUD WAS CLARIFIED ON 2ND DOSE OF DIGOXIN. BP 127/59, HR 76. ORDER CARRIED OUT.
[2019-12-20 16:41] VITALS: BP 127/59
--- NOTE | 2019-12-20 17:30 | NUR ---
WOUND ASSESSMENT DONE TO PT NOW, CLEANSED WITH NS AND PAT DRY, HYDROGEL APPLIED AND REINFORCED BY A DRESSING, PICTURE WAS ALSO TAKEN AND ATTACHED TO CHART.
--- NOTE | 2019-12-20 18:30 | NUR ---
DISCHARGED PT VIA WHEELCHAIR WITH DAUGHTER, DISCHARGED TEACHINGS AND INSTRUCTIONS GIVEN TO PT AND VERBALIZED UNDERSTANDING, IV LINE AND ARM BAND REMOVED AND PT IS STABLE AT THIS TIME.
== END 2019-12-20 18:30 | disposition home health service (06) | DRG 871 ==
LOC: MED 12:45 → EEVIPCON 12:45 → MTU 15:41
PROVIDERS: ADMIT General Practice; ATTEND General Practice
DX: A41.51 Sepsis due to Escherichia coli [E. coli] (principal); J96.01 Acute respiratory failure with hypoxia; I26.99 Other pulmonary embolism without acute cor pulmonale; N39.0 Urinary tract infection, site not specified; B96.89 Other specified bacterial agents as the cause of diseases classified elsewhere; E78.5 Hyperlipidemia, unspecified; Z90.710 Acquired absence of both cervix and uterus; Z87.891 Personal history of nicotine dependence; J44.9 Chronic obstructive pulmonary disease, unspecified; I50.9 Heart failure, unspecified; Z03.818 Encounter for observation for suspected exposure to other biological agents ruled out; K64.4 Residual hemorrhoidal skin tags; K59.00 Constipation, unspecified; Z88.8 Allergy status to other drugs, medicaments and biological substances
CPT/HCPCS: 36415; 36600; 71045; 71275; 80048; 80053; 80162; 81001; 82150; 82550; 82728; 82803; 83036; 83605; 83615; 83625; 83690; 83735; 83880; 84100; 84439; 84443; 84484; 85025; 85379; 85610; 85651; 85730; 86140; 87040; 87081; 87086; 87186; 87804; 93005; 94640; 96365; 97110; 97112; 97116; 97161-GP; 97530; 99285; A6248; J0456; J0696; J1644; J1650; J2060; J3535; J7030; J7060; Q0092; Q9967